=== PATIENT | female | born 1955 | race American Indian/Alaskan Native ===

== ENCOUNTER 2017-01-28 12:45 | Outpatient (CLI) | payer BC ==
--- NOTE | 2017-01-28 13:40 | Mammography Report ---
Screening mammogram: Routine views are compared to our prior study in 2015 as well as an outside exam and 2013. There is an intermediate residual fibroglandular tissue in a generally symmetric distribution. There is a focal asymmetry in the right inferior breast. Minimal architectural changes are noted anteriorly on the left consistent with prior surgery. These findings are all unchanged from prior exam. CAD used. Impression: Stable breast pattern. Recommendation: Annual mammogram followup. BI-RADS CATEGORY: 1 = Negative ACR BI-RADS MAMMOGRAPHIC CODES: 0 = Needs additional imaging evaluation; 1 = Negative; 2 = Benign; 3 = Probably benign; 4 = Suspicious; 5 = Malignant; 6 = Known biopsy-proven malignancy COMMENT: 1. Dense breast tissue, i.e., adenosis, fibrocystic changes, etc., may obscure an underlying neoplasm. 2. Approximately 10% of cancers are not detected with mammography. 3. A negative mammography report should not delay biopsy if a clinically suspicious mass is present.
== END 2017-01-28 12:46 | disposition home or self-care (01) ==
LOC: MAMMO 12:45
PROVIDERS: ATTEND Family Medicine Adult Medicine
DX: Z12.31 Encounter for screening mammogram for malignant neoplasm of breast (principal)
CPT/HCPCS: 77067; G0202

== ENCOUNTER 2018-02-01 07:34 | Outpatient (CLI) | payer BC ==
--- NOTE | 2018-02-01 09:36 | Mammography Report ---
Bilateral mammogram: Compared to 01/28/17 and 04/18/15. CAD study utilized. Findings: Predominantly adipose tissue bilaterally. Benign density upper outer right breast without interval change. 3 mm circumscribed density in the posterior and upper and lower left breast seen on MLO view. 3 mm circumscribed new density in the posterior left breast. Impression: Near circumscribed densities left breast. Recommend spot mag and if necessary sonographic examination. BI-RADS CATEGORY: 0 = Needs additional imaging evaluation ACR BI-RADS MAMMOGRAPHIC CODES: 0 = Needs additional imaging evaluation; 1 = Negative; 2 = Benign; 3 = Probably benign; 4 = Suspicious; 5 = Malignant; 6 = Known biopsy-proven malignancy COMMENT: 1. Dense breast tissue, i.e., adenosis, fibrocystic changes, etc., may obscure an underlying neoplasm. 2. Approximately 10% of cancers are not detected with mammography. 3. A negative mammography report should not delay biopsy if a clinically suspicious mass is present. COMMENT: Patient follow-up letters are generated in [employer].
--- NOTE | 2018-02-01 10:51 | Ultrasound Report ---
Pelvic and transvaginal sonography: History: Pelvic pain. Findings: Uterus measures 5.2 x 1.8 x 2.7 cm. Anteverted uterus. Endometrial thickness 4.3 mm. Fluid noted in the endometrium. There is no distinct mass identified in the myometrium however a few echogenic scattered foci are identified which may represent calcification among other causes. Incidentally noted dilated distal right ureter adjacent to the bladder. Impression: Fluid in endometrium. Suspected dilated right ureter near the bladder.
== END 2018-02-01 07:35 | disposition home or self-care (01) ==
LOC: MAMMO 07:34
PROVIDERS: ATTEND Family Medicine Adult Medicine
DX: Z12.31 Encounter for screening mammogram for malignant neoplasm of breast (principal); R10.2 Pelvic and perineal pain
CPT/HCPCS: 76830; 76856; 77067

== ENCOUNTER 2018-03-14 08:23 | Outpatient (CLI) | payer BC ==
--- NOTE | 2018-03-14 09:32 | Mammography Report ---
LEFT DIGITAL DIAGNOSTIC MAMMOGRAM : 03/14/18 08:23:00 CLINICAL: Recall to evaluate asymmetries. COMPARISON:02/01/18 screening and additional mammograms going back to 07/19/13 FINDINGS: ML and spot compression MLO and CC views were performed. An oval 7 mm density along the pectoral muscle is probably a lymph node and has not changed compared to prior exams. A low density circumscribed lower inner nodule is also not significantly changed compared to prior exams. IMPRESSION: A benign upper posterior intramammary lymph node and a benign lower inner nodule. BI-RADS CATEGORY: 2 - - Benign RECOMMENDATION: Routine mammographic screening in one year. ACR BI-RADS MAMMOGRAPHIC CODES: 0 = Needs additional imaging evaluation; 1 = Negative; 2 = Benign; 3 = Probably benign; 4 = Suspicious; 5 = Malignant; 6 = Known biopsy-proven malignancy COMMENT: 1. Dense breast tissue, i.e., adenosis, fibrocystic changes, etc., may obscure an underlying neoplasm. 2. Approximately 10% of cancers are not detected with mammography. 3. A negative mammography report should not delay biopsy if a clinically suspicious mass is present. COMMENT: Patient follow-up letters are generated via our [employer] application.
== END 2018-03-14 08:24 | disposition home or self-care (01) ==
LOC: MAMMO 08:23
PROVIDERS: ATTEND Family Medicine Adult Medicine
DX: R92.8 Other abnormal and inconclusive findings on diagnostic imaging of breast (principal)

== ENCOUNTER 2019-03-16 07:07 | Outpatient (CLI) | payer BC ==
--- NOTE | 2019-03-16 08:56 | Mammography Report ---
Screening mammogram: Routine views compared to her prior examination in January 2017. There is a focal asymmetry in the inferior right breast. Small circumscribed nodule is noted in the lateral right breast as well as near the axilla in the left breast. Mild architectural changes are noted on the left from history prior surgery. The remainder the breast pattern is generally fatty replaced and unremarkable. There are no interval changes compared to her prior exam. CAD used. Impression: Stable exam. No suspicious findings. Recommendation: Annual mammogram followup. BI-RADS CATEGORY: 2 = Benign ACR BI-RADS MAMMOGRAPHIC CODES: 0 = Needs additional imaging evaluation; 1 = Negative; 2 = Benign; 3 = Probably benign; 4 = Suspicious; 5 = Malignant; 6 = Known biopsy-proven malignancy COMMENT: 1. Dense breast tissue, i.e., adenosis, fibrocystic changes, etc., may obscure an underlying neoplasm. 2. Approximately 10% of cancers are not detected with mammography. 3. A negative mammography report should not delay biopsy if a clinically suspicious mass is present.
== END 2019-03-16 07:08 | disposition home or self-care (01) ==
LOC: MAMMO 07:07
PROVIDERS: ATTEND Family Medicine Adult Medicine
DX: Z12.31 Encounter for screening mammogram for malignant neoplasm of breast (principal)
CPT/HCPCS: 77067

== ENCOUNTER 2019-07-03 16:53 | Observation (INO) | payer BC ==
--- NOTE | 2019-07-03 17:27 | Event Note ---
ED Screening Note Date of service: 07/03/19 Time: 17:26 ED Screening Note: 64 y o female presents with substernal chest pain radiating to back and left shoulder x 2 days This initial assessment/diagnostic orders/clinical plan/treatment(s) is/are subject to change based on patients health status, clinical progression and re- assessment by fellow clinical providers in the ED. Further treatment and workup at subsequent clinical providers discretion. Patient/guardian urged not to elope from the ED as their condition may be serious if not clinically assessed and managed. Initial orders include: ekg labs
--- NOTE | 2019-07-03 18:09 | XRay Report ---
CHEST 1 VIEW INDICATION: Chest Pain. COMPARISON: none FINDINGS: SUPPORT DEVICES: None. HEART / MEDIASTINUM: No significant abnormality. LUNGS / PLEURA: No significant pulmonary or pleural abnormality. No pneumothorax. ADDITIONAL FINDINGS: IMPRESSION: 1. No acute findings. Signer Name: Germain Estrella MD Signed: 07/03/2019 6:05 PM Workstation Name: [id number]
[2019-07-03 18:20] LABS: Basophils % (Auto) 0.5 % (0.0-1.8); Eosinophils # (Auto) 0.1 K/mm3 (0.0-0.4); Eosinophils % (Auto) 0.8 % (0.0-4.3); Hematocrit 35.3 % (30.3-42.9); Hemoglobin 11.8 gm/dl (10.1-14.3); Lymphocytes # (Auto) 2.7 K/mm3 (1.2-5.4); Lymphocytes % (Auto) 35.6 % (13.4-35.0); Mean Corpuscular HGB Conc 33 % (30-34); Mean Corpuscular Volume 85 fl (79-97); Monocytes # (Auto) 0.4 K/mm3 (0.0-0.8); Monocytes % (Auto) 5.8 % (0.0-7.3); Platelet Count 308 K/mm3 (140-440); Red Blood Count 4.18 M/mm3 (3.65-5.03); Red Cell Distribution Width 15.9 % (13.2-15.2)
[2019-07-03 18:42] LABS: BUN/Creatinine Ratio 10; Blood Urea Nitrogen 7 mg/dL (7-17); Calcium 9.3 mg/dL (8.4-10.2); Hemolysis Index 12
--- NOTE | 2019-07-03 20:27 | Emergency Department Report ---
ED General Adult HPI - General Chief complaint: Chest Pain Stated complaint: CHEST PAIN/SOB Time Seen by Provider: 07/03/19 17:25 Source: patient Mode of arrival: Ambulatory Limitations: No Limitations - History of Present Illness Initial comments: The patient presents to the emergency department with a chief complaint of substernal chest pain that started at 11 AM while at work. Patient describes the chest pain is pressure-like in nature with radiation into her left forearm and into her back between her shoulder blades. Patient has a history of h ypertension, diabetes, hyperlipidemia. She also complains of nausea with one episode of vomiting -: Sudden Location: chest Radiation: back Severity scale (0 -10): 3 Quality: other (pressure) Consistency: constant Improves with: none Worsens with: none Associated Symptoms: denies other symptoms Treatments Prior to Arrival: none - Related Data Allergies Allergy/AdvReac Type Severity Reaction Status Date / Time Sulfa (Sulfonamide Allergy Itching Verified 07/03/19 17:23 Antibiotics) ED Review of Systems ROS: Stated complaint: CHEST PAIN/SOB Other details as noted in HPI Comment: All other systems reviewed and negative Constitutional: denies: chills, fever Eyes: denies: eye pain, eye discharge, vision change ENT: denies: ear pain, throat pain Respiratory: denies: cough, shortness of breath, wheezing Cardiovascular: chest pain. denies: palpitations Endocrine: no symptoms reported Gastrointestinal: denies: abdominal pain, nausea, diarrhea Genitourinary: denies: urgency, dysuria, discharge Musculoskeletal: denies: back pain, joint swelling, arthralgia Skin: denies: rash, lesions Neurological: denies: headache, weakness, paresthesias Psychiatric: denies: anxiety, depression Hematological/Lymphatic: denies: easy bleeding, easy bruising ED Past Medical Hx - Past Medical History Previous Medical History?: Yes Hx Hypertension: Yes Hx Diabetes: Yes Hx GERD: Yes Hx Psychiatric Treatment: Yes (Depression) Additional medical history: Hypothyroidism - Surgical History Past Surgical History?: Yes Additional Surgical History: , partial thyriodectomy - Social History Smoking Status: Never Smoker Substance Use Type: None ED Physical Exam - General Limitations: No Limitations General appearance: alert, in no apparent distress - Head Head exam: Present: atraumatic, normocephalic - Eye Eye exam: Present: normal appearance, PERRL, EOMI - ENT ENT exam: Present: mucous membranes moist - Neck Neck exam: Present: normal inspection - Respiratory Respiratory exam: Present: normal lung sounds bilaterally. Absent: respiratory distress - Cardiovascular Cardiovascular Exam: Present: regular rate, normal rhythm. Absent: systolic murmur, diastolic murmur, rubs, gallop - GI/Abdominal GI/Abdominal exam: Present: soft, normal bowel sounds. Absent: distended, tenderness - Extremities Exam Extremities exam: Present: normal inspection - Back Exam Back exam: Present: normal inspection - Neurological Exam Neurological exam: Present: alert, oriented X3, CN II-XII intact. Absent: motor sensory deficit - Psychiatric Psychiatric exam: Present: normal affect, normal mood - Skin Skin exam: Present: warm, dry, intact, normal color. Absent: rash ED Course Vital Signs 07/03/19 07/03/19 07/03/19 17:24 18:11 18:15 Temperature 98.2 F Pulse Rate 71 67 Respiratory 18 16 16 Rate Blood Pressure 151/84 133/71 [Right] O2 Sat by Pulse 98 99 99 Oximetry 07/03/19 07/03/19 19:55 20:45 Temperature 98.4 F Pulse Rate 69 60 Respiratory 18 12 Rate Blood Pressure 120/67 125/64 [Right] O2 Sat by Pulse 98 97 Oximetry ED Medical Decision Making - Lab Data Result diagrams: 07/03/19 17:57 07/03/19 17:57 Lab Results 07/03/19 07/03/19 07/03/19 Range/Units 17:57 17:57 22:56 WBC 7.6 (4.5-11.0) K/mm3 RBC 4.18 (3.65-5.03) M/mm3 Hgb 11.8 (10.1-14.3) gm/dl Hct 35.3 (30.3-42.9) % MCV 85 (79-97) fl MCH 28 (28-32) pg MCHC 33 (30-34) % RDW 15.9 H (13.2-15.2) % Plt Count 308 (140-440) K/mm3 Lymph % (Auto) 35.6 H (13.4-35.0) % Lipscomb % (Auto) 5.8 (0.0-7.3) % Eos % (Auto) 0.8 (0.0-4.3) % Baso % (Auto) 0.5 (0.0-1.8) % Lymph # 2.7 (1.2-5.4) K/mm3 Lipscomb # 0.4 (0.0-0.8) K/mm3 Eos # 0.1 (0.0-0.4) K/mm3 Baso # 0.0 (0.0-0.1) K/mm3 Seg Neutrophils % 57.3 (40.0-70.0) % Seg Neutrophils # 4.3 (1.8-7.7) K/mm3 Sodium 141 (137-145) mmol/L Potassium 4.1 (3.6-5.0) mmol/L Chloride 102.8 (98-107) mmol/L Carbon Dioxide 27 (22-30) mmol/L Anion Gap 15 mmol/L BUN 7 (7-17) mg/dL Creatinine 0.7 (0.7-1.2) mg/dL Estimated GFR > 60 ml/min BUN/Creatinine Ratio 10 % Glucose 101 H (65-100) mg/dL Calcium 9.3 (8.4-10.2) mg/dL Troponin T < 0.010 < 0.010 (0.00-0.029) ng/mL - EKG Data -: EKG Interpreted by Me EKG shows normal: sinus rhythm Rate: normal - Radiology Data Radiology results: report reviewed - Medical Decision Making results discussed with patient Critical care attestation.: If time is entered above; I have spent that time in minutes in the direct care of this critically ill patient, excluding procedure time. ED Disposition Clinical Impression: Chest pain Disposition: OP ADMIT IP TO THIS HOSP Is pt being admited?: No Does the pt Need Aspirin: No Condition: Stable Instructions: Chest Pain (ED) Referrals: PRIMARY CARE, [Primary Care Provider] - 3-5 Days
--- NOTE | 2019-07-03 22:53 | Cat Scan Report ---
CTA CHEST, ABDOMEN, AND PELVIS WITHOUT AND WITH CONTRAST INDICATION / CLINICAL INFORMATION: chest pain radiating into back. TECHNIQUE: Axial CT images were obtained through the chest, abdomen, and pelvis before and after injection of 10 0 mL Omnipaque 300 IV contrast. 3 plane MIP and/or 3D reconstructions were produced. All CT scans at this location are performed using CT dose reduction for ALARA by means of automated exposure control. COMPARISON: None available. FINDINGS: Heart: Nonenlarged. Small amount of coronary artery calcification. Thoracic Aorta: No significant abnormality. Specifically, there is no evidence of aortic aneurysm or dissection. Great Vessels: No significant abnormality. Pulmonary Arteries: No significant abnormality. No pulmonary thromboembolus is identified. The main p ulmonary artery is nondilated. Additional Chest Findings: Calcified granuloma in the left upper lobe. The lungs are clear without fo michelle pulmonary consolidation. No pleural effusion. No pneumothorax. Abdominal Aorta: Minimal atherosclerotic calcification. There is no evidence of abdominal aortic aneu rysm or dissection. Renal arteries: No significant abnormality. Celiac artery: No significant abnormality. Superior Mesenteric Artery: No significant abnormality. Inferior mesenteric artery: No significant abnormality. Right Iliac Arteries: No significant abnormality.. Left Iliac Arteries: No significant abnormality.. Additional Abdominopelvic Findings: Small hiatal hernia. There is a 1.1 cm lesion in the left kidney with areas of fat attenuation most compatible with a small angiomyolipoma. The liver, gallbladder, sp josé miguel, pancreas, adrenal glands, and right kidney are unremarkable. There is no evidence of bowel obst ruction or significant perienteric inflammation. Skeletal Structures: No significant abnormality. IMPRESSION: 1. No acute process identified to account for patient's chest pain. Specifically, there is no evidenc e of aortic aneurysm or dissection, and no evidence of pulmonary thromboembolism. Signer Name: Sarah Mobley MD Signed: 07/03/2019 10:48 PM Workstation Name: [id number]
--- NOTE | 2019-07-03 23:24 | Cat Scan Report ---
CT angio abdomen INDICATION / CLINICAL INFORMATION: chest pain radiating into the patient's back. TECHNIQUE: Axial CT images were obtained after injection of 100 mL IV contrast using CTA protocol. 3 plane MIP / 3D reconstructions were produced. All CT scans at this location are performed using CT dose reductio n for ALARA by means of automated exposure control. COMPARISON: None available. FINDINGS: CTA of the abdomen: The abdominal aorta is normal in size without aneurysm or dissection. No occlusio n or stenosis present. Scattered atherosclerotic calcification present throughout much of the upper a bdominal aorta. The DAYAMI is patent. The SMA and celiac arteries are widely patent. Both renal arteries are unremarkable. The liver, gallbladder, spleen pancreas adrenal glands are unremarkable. IMPRESSION: 1. No evidence of aortic aneurysm or dissection. No acute findings Signer Name: Asher Martinez MD Signed: 07/03/2019 11:20 PM Workstation Name: [id number]
--- NOTE | 2019-07-04 00:06 | Event Note ---
64-year-old woman who presents to the hospital with chest pain. She is been having chest pain for over a year. States that she has chest pain on exertion. Has been getting more frequent and more severe. States that usually the pain lasts about 5 minutes. It takes her breath away makes her feel like her heart is racing. She gets chest pain on walking and on going up the stairs. And it subsides with resting. She describes the pain as sharp stabbing in the mid chest radiating to the left neck left arm and left upper back. Sometimes he has a squeezing/pressure sensation. She admits that she has a history of anxiety disorder and takes Xanax on and off, but that may be with anxiety causing it. She bought a pulse ox at home, noted that when she has chest pain her heart rate goes up as high as 118, and it is usually in the 80s at rest. She has been concerned about dyspnea on exertion. Denies pedal edema, denies orthopnea. Today the chest pain happened after she had walked, and it kept recurring and she noted that she was nauseous and threw up him to come to the hospital. Patient states that she has not had a stress test in at least 2 years. 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
[2019-07-04] MEDS ORDERED: ACETAMINOPHEN 325 MG TAB PO PRN (00:12)
[2019-07-04] MEDS ORDERED: ONDANSETRON 4 MG/2 ML INJ IV PRN (00:12)
[2019-07-04] MEDS ORDERED: MORPHINE 2 MG/1 ML INJ IV PRN (00:12)
[2019-07-04] MEDS ORDERED: hydrALAZINE 20 MG/1 ML INJ IV PRN ×2 (00:14→00:31)
[2019-07-04] MEDS ORDERED: ASPIRIN 325 MG TAB PO ONE (01:00)
[2019-07-04] MEDS ORDERED: DEXTROSE 50% IN WATER (25GM) 50 ML SYRINGE IV PRN (01:08)
[2019-07-04 01:09] LABS: Chol/HDL Ratio 1.96 %
--- NOTE | 2019-07-04 01:20 | History and Physical Report ---
History of Present Illness Date of examination: 07/04/19 Date of admission: 07/04/2019 Chief complaint: Chest Pain History of present illness: 64-year-old -[place] female with history of hypertension, diabetes, GERD, hypothyroidism, depression, anxiety who presents to [facility] ED with complaints of chest pain. 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 She immediately sat down and started taking deep breaths, which improved her chest pain to 5/10. She denies nausea and diaphoresis. Additionally patient states that she's been having palpitations for approximately 1 month. Her palpitations have gradually wor sened over the past 2 weeks with this past Tuesday being its worst. She decided to call her calibration tester (Dr. Pan with [facility]) on Tuesday morning and scheduled an appointment for July 24. She states that she has had cardiac workup which included echocardiogram and LHC about 15 years ago. Patient states that she is compliant with meds. Denies: Nausea, vomiting, diarrhea, diaphoresis, fever, or headache Past History Past Medical History: diabetes, GERD, hypertension, hypothyroidism, other (depression, anxiety) Past Surgical History: , Other (partial thyroidectomy) Social history: Lives alone Family history: no significant family history Medications and Allergies Allergies Allergy/AdvReac Type Severity Reaction Status Date / Time Sulfa (Sulfonamide Allergy Itching Verified 07/03/19 17:23 Antibiotics) Home Medications Medication Instructions Recorded Confirmed Last Taken Type Aspirin [Aspirin BABY CHEW TAB] 81 mg PO QDAY 07/04/19 07/04/19 Unknown History AtorvaSTATin [Lipitor] 10 mg PO QHS 07/04/19 07/04/19 Unknown History DULoxetine [Cymbalta] 30 mg PO QDAY 07/04/19 07/04/19 Unknown History Levothyroxine [Synthroid] 75 mcg PO QAM 07/04/19 07/04/19 Unknown History Lisinopril [Zestril TAB] 40 mg PO QDAY 07/04/19 07/04/19 Unknown History Metformin HCl [metFORMIN] 1,000 mg PO BID 07/04/19 07/04/19 Unknown History Pantoprazole [Protonix] 40 mg PO BID 07/04/19 07/04/19 Unknown History Potassium Chloride [K-Dur] 10 meq PO QDAY 07/04/19 07/04/19 Unknown History Sucralfate [Carafate] 1 gm PO ACHS 07/04/19 07/04/19 Unknown History amLODIPine [Norvasc] 10 mg PO DAILY 07/04/19 07/04/19 Unknown History Active Meds: Active Medications Acetaminophen (Tylenol) 650 mg PO Q4H PRN PRN Reason: Pain MILD(1-3)/Fever >100.5/SARAVIA Amlodipine Besylate (Norvasc) 10 mg PO DAILY [facility] Aspirin (Baby Aspirin) 81 mg PO QDAY [facility] Dextrose (D50w (25gm) Syringe) 50 ml IV PRN PRN PRN Reason: Hypoglycemia Duloxetine HCl (Cymbalta) 30 mg PO QDAY MARGARET Enoxaparin Sodium (Lovenox) 40 mg SUB-Q QDAY [facility] Hydralazine HCl (Apresoline) 10 mg IV Q4H PRN PRN Reason: BP >160/100 Insulin Human Lispro (Humalog) 0 unit SUB-Q Q6HR [facility]; Protocol Levothyroxine Sodium (Synthroid) 75 mcg PO QAM [facility] Lisinopril (Zestril) 40 mg PO QDAY [facility] Miscellaneous Medication (Metformin Hcl [Metformin]) 1,000 mg PO BID [facility] Morphine Sulfate (Morphine) 2 mg IV Q4H PRN PRN Reason: Pain, Moderate (4-6) Nitroglycerin (Nitro-Bid 2%) 0.5 inch TP TIDNTG [facility]; Protocol Ondansetron HCl (Zofran) 4 mg IV Q8H PRN PRN Reason: Nausea And Vomiting Pantoprazole Sodium (Protonix) 40 mg PO BID [facility] Sodium Chloride (Sodium Chloride Flush Syringe 10 Ml) 10 ml IV PRN PRN PRN Reason: LINE FLUSH Sodium Chloride (Sodium Chloride Flush Syringe 10 Ml) 10 ml IV BID [facility] Review of Systems All systems: negative Cardiovascular: chest pain, palpitations, dyspnea on exertion Exam - Physical Exam Narrative exam: Physical exam General appearance: Present: No acute distress, alert and oriented 3, pleasant, adult -[place] male - EENT Eyes: Present: PERRL, EOM intact, ENT: hearing intact, normal dentition - Neck Neck: Present: supple, normal ROM - Respiratory Respiratory effort: Non-labored Respiratory: CTA - Cardiovascular Heart rate: 65 (bpm) Rhythm: SR Heart Sounds: Present: S1, S2 - Extremities Extremities: no ischemia, pulses intact, - Peripheral Assessment Peripheral Pulses: within normal limits - Abdominal General gastrointestinal: soft, non-tender, normal bowel sounds - Integumentary Integumentary: Present: warm, dry, - Musculoskeletal Musculoskeletal: Able to move all extremities, normal gait -Neurological Neurological: CN II-XII grossly intact - Psychiatric Psychiatric: cooperative - Constitutional Vitals: Temp Pulse Resp BP Pulse Ox 98.4 F 62 13 127/68 98 07/03/19 19:55 07/04/19 00:25 07/04/19 00:25 07/04/19 00:00 07/04/19 00:25 Results - Labs CBC & Chem 7: 07/03/19 17:57 07/03/19 17:57 Labs: Laboratory Last Values WBC 7.6 K/mm3 (4.5-11.0) 07/03/19 17:57 RBC 4.18 M/mm3 (3.65-5.03) 07/03/19 17:57 Hgb 11.8 gm/dl (10.1-14.3) 07/03/19 17:57 Hct 35.3 % (30.3-42.9) 07/03/19 17:57 MCV 85 fl (79-97) 07/03/19 17:57 MCH 28 pg (28-32) 07/03/19 17:57 MCHC 33 % (30-34) 07/03/19 17:57 RDW 15.9 % (13.2-15.2) H 07/03/19 17:57 Plt Count 308 K/mm3 (140-440) 07/03/19 17:57 Lymph % (Auto) 35.6 % (13.4-35.0) H 07/03/19 17:57 [place] % (Auto) 5.8 % (0.0-7.3) 07/03/19 17:57 Eos % (Auto) 0.8 % (0.0-4.3) 07/03/19 17:57 Baso % (Auto) 0.5 % (0.0-1.8) 07/03/19 17:57 Lymph # 2.7 K/mm3 (1.2-5.4) 07/03/19 17:57 [place] # 0.4 K/mm3 (0.0-0.8) 07/03/19 17:57 Eos # 0.1 K/mm3 (0.0-0.4) 07/03/19 17:57 Baso # 0.0 K/mm3 (0.0-0.1) 07/03/19 17:57 Seg Neutrophils % 57.3 % (40.0-70.0) 07/03/19 17:57 Seg Neutrophils # 4.3 K/mm3 (1.8-7.7) 07/03/19 17:57 Sodium 141 mmol/L (137-145) 07/03/19 17:57 Potassium 4.1 mmol/L (3.6-5.0) 07/03/19 17:57 Chloride 102.8 mmol/L (98-107) 07/03/19 17:57 Carbon Dioxide 27 mmol/L (22-30) 07/03/19 17:57 Anion Gap 15 mmol/L 07/03/19 17:57 BUN 7 mg/dL (7-17) 07/03/19 17:57 Creatinine 0.7 mg/dL (0.7-1.2) 07/03/19 17:57 Estimated GFR > 60 ml/min 07/03/19 17:57 BUN/Creatinine Ratio 10 % 07/03/19 17:57 Glucose 101 mg/dL (65-100) H 07/03/19 17:57 Calcium 9.3 mg/dL (8.4-10.2) 07/03/19 17:57 Troponin T < 0.010 ng/mL (0.00-0.029) 07/03/19 22:56 Triglycerides 76 mg/dL (2-149) 07/04/19 00:20 Cholesterol 130 mg/dL (50-199) 07/04/19 00:20 LDL Cholesterol Direct 56 mg/dL (50-130) 07/04/19 00:20 HDL Cholesterol 66 mg/dL (40-59) H 07/04/19 00:20 Cholesterol/HDL Ratio 1.96 % 07/04/19 00:20 - Imaging and Cardiology Imaging and Cardiology: CXR: FINDINGS: SUPPORT DEVICES: None. HEART / MEDIASTINUM: No significant abnormality. LUNGS / PLEURA: No significant pulmonary or pleural abnormality. No pneumothorax. ADDITIONAL FINDINGS: IMPRESSION: 1. No acute findings. CT angio Chest: FINDINGS: Heart: Nonenlarged. Small amount of coronary artery calcification. Thoracic Aorta: No significant abnormality. Specifically, there is no evidence of aortic aneurysm or dissection. Great Vessels: No significant abnormality. Pulmonary Arteries: No significant abnormality. No pulmonary thromboembolus is identified. The main pulmonary artery is nondilated. Additional Chest Findings: Calcified granuloma in the left upper lobe. The lungs are clear without focal pulmonary consolidation. No pleural effusion. No pneumothorax. Abdominal Aorta: Minimal atherosclerotic calcification. There is no evidence of abdominal aortic aneurysm or dissection. Renal arteries: No significant abnormality. Celiac artery: No significant abnormality. Superior Mesenteric Artery: No significant abnormality. Inferior mesenteric artery: No significant abnormality. Right Iliac Arteries: No significant abnormality.. Left Iliac Arteries: No significant abnormality.. Additional Abdominopelvic Findings: Small hiatal hernia. There is a 1.1 cm lesion in the left kidney with areas of fat attenuation most compatible with a small angiomyolipoma. The liver, gallbladder, spleen, pancreas, adrenal glands, and right kidney are unremarkable. There is no evidence of bowel obstruction or significant perienteric inflammation. Skeletal Structures: No significant abnormality. IMPRESSION: 1. No acute process identified to account for patient's chest pain. Spec ifically, there is no evidence of aortic aneurysm or dissection, and no evidence of pulmonary thromb oembolism. CT angio Abdomen: FINDINGS: CTA of the abdomen: The abdominal aorta is normal in size without aneurysm or dissection. No occlusion or stenosis present. Scattered atherosclerotic calcification present throughout much of the upper abdominal aorta. The DAYAMI is patent. The SMA and celiac arteries are widely patent. Both renal arteries are unremarkable. The liver, gallbladder, spleen pancreas adrenal glands are unremarkable. IMPRESSION: 1. No evidence of aortic aneurysm or dissection. No acute findings Assessment and Plan Assessment and plan: 64-year-old -[place] female with history of hypertension, diabetes, GERD, hypothyroidism, depression, anxiety who presents to [facility] with complaints of chest pain. Acute Chest Pain -CT angiogram chest negative -CT angiogram abdomen negative -CXR unremarkable -Initiate chest pain protocol -Continuous telemetry monitoring -Continue supportive care -Pain mgmt -Troponin negative x 2, will continue to trend -On ASA and Statin -Lipid panel pending -Cardiology consulted HTN -Monitor BP -Resume home antihypertensive meds -IV hydralazine when necessary DM2 -POC BG monitoring -Resume metformin -SSI coverage prn -HgbA1c pending GERD -On PPI Hypothyroidism -Continue Synthroid Depression -Continue Cymbalta DVT PPX -on Lovenox Advance Directives: No VTE prophylaxis?: Chemical Plan of care discussed with patient/family: Yes
[2019-07-04] MEDS ORDERED: SODIUM CHLORIDE 0.9% 1000 ML 1,000 ML ONE (06:41)
[2019-07-04] MEDS ORDERED: metFORMIN 500 MG TAB PO SCH (08:00)
[2019-07-04] MEDS: NITROGLYCERIN 2% OINT 1 GM TP SCH ×3 (08:05→18:06)
[2019-07-04] MEDS: INSULIN LISPRO 100 UNIT/ML SUB-Q SCH ×3 (08:05→18:05)
[2019-07-04] MEDS: LEVOTHYROXINE 75 MCG TAB PO SCH (08:05)
[2019-07-04] MEDS ORDERED: REGADENOSON 0.4 MG/5 ML INJ IV ONE ×2 (08:33→08:51)
[2019-07-04] MEDS ORDERED: amLODIPine 10 MG TAB PO SCH (10:00)
[2019-07-04] MEDS ORDERED: FLU VACC QUAD 2019-20 (3 YR UP)/PF 60 MCG/0.5 ML SYRINGE IM ONE (12:00)
[2019-07-04] MEDS: DULoxetine 30 MG CAP PO SCH (13:08)
[2019-07-04] MEDS: ASPIRIN 81 MG TAB CHEW PO SCH (13:09)
[2019-07-04] MEDS: PANTOPRAZOLE 40 MG TAB PO SCH ×2 (13:09→21:33)
[2019-07-04] MEDS: LISINOPRIL 40 MG TAB PO SCH (13:09)
[2019-07-04] MEDS: ENOXAPARIN 40 MG/0.4 ML INJ SUB-Q SCH (15:49)
--- NOTE | 2019-07-04 16:24 | Progress Note ---
Assessment and Plan Assessment and plan: --Chest pain; Stress test abnormal, positive for ischemia Cardiology recommended left heart catheterization tomorrow Continue current cardiac medications Cardiology following --Hypertension; moderate control Continue current antihypertensives and when necessary medications --Type 2 diabetes mellitus; Accu-Chek sliding scale coverage and ADA diet and insulin as needed --GERD; Protonix --History of hypothyroidism; Synthroid --History of depression; continue Cymbalta --DVT prophylaxis; Lovenox Closely monitor and adjust the management as needed Plan of care is reviewed for the patient and her nurse History Interval history: Patient seen and examined medical records reviewed Admitted with chest pain and underwent stress test which was abnormal Cardiology recommended left heart catheterization tomorrow Patient feels slightly better mild intermittent chest pain Alert awake oriented 3 Vital signs noted Hospitalist Physical - Constitutional Vitals: Temp Pulse Resp BP Pulse Ox 98.6 F 79 18 118/87 99 07/04/19 12:23 07/04/19 12:23 07/04/19 12:23 07/04/19 12:23 07/04/19 12:23 General appearance: Present: no acute distress, well-nourished - EENT Eyes: Present: PERRL, EOM intact - Neck Neck: Present: supple, normal ROM - Respiratory Respiratory effort: normal Respiratory: bilateral: diminished, negative: rales, rhonchi, wheezing - Cardiovascular Rhythm: regular Heart Sounds: Present: S1 & S2 - Extremities Extremities: no ischemia, No edema - Abdominal General gastrointestinal: soft, non-tender, non-distended, normal bowel sounds - Integumentary Integumentary: Present: clear, warm - Psychiatric Psychiatric: appropriate mood/affect, cooperative - Neurologic Neurologic: CNII-XII intact, moves all extremities Results - Labs CBC & Chem 7: 07/03/19 17:57 07/03/19 17:57 Labs: Laboratory Last Values WBC 7.6 K/mm3 (4.5-11.0) 07/03/19 17:57 RBC 4.18 M/mm3 (3.65-5.03) 07/03/19 17:57 Hgb 11.8 gm/dl (10.1-14.3) 07/03/19 17:57 Hct 35.3 % (30.3-42.9) 07/03/19 17:57 MCV 85 fl (79-97) 07/03/19 17:57 MCH 28 pg (28-32) 07/03/19 17:57 MCHC 33 % (30-34) 07/03/19 17:57 RDW 15.9 % (13.2-15.2) H 07/03/19 17:57 Plt Count 308 K/mm3 (140-440) 07/03/19 17:57 Lymph % (Auto) 35.6 % (13.4-35.0) H 07/03/19 17:57 [place] % (Auto) 5.8 % (0.0-7.3) 07/03/19 17:57 Eos % (Auto) 0.8 % (0.0-4.3) 07/03/19 17:57 Baso % (Auto) 0.5 % (0.0-1.8) 07/03/19 17:57 Lymph # 2.7 K/mm3 (1.2-5.4) 07/03/19 17:57 [place] # 0.4 K/mm3 (0.0-0.8) 07/03/19 17:57 Eos # 0.1 K/mm3 (0.0-0.4) 07/03/19 17:57 Baso # 0.0 K/mm3 (0.0-0.1) 07/03/19 17:57 Seg Neutrophils % 57.3 % (40.0-70.0) 07/03/19 17:57 Seg Neutrophils # 4.3 K/mm3 (1.8-7.7) 07/03/19 17:57 Sodium 141 mmol/L (137-145) 07/03/19 17:57 Potassium 4.1 mmol/L (3.6-5.0) 07/03/19 17:57 Chloride 102.8 mmol/L (98-107) 07/03/19 17:57 Carbon Dioxide 27 mmol/L (22-30) 07/03/19 17:57 Anion Gap 15 mmol/L 07/03/19 17:57 BUN 7 mg/dL (7-17) 07/03/19 17:57 Creatinine 0.7 mg/dL (0.7-1.2) 07/03/19 17:57 Estimated GFR > 60 ml/min 07/03/19 17:57 BUN/Creatinine Ratio 10 % 07/03/19 17:57 Glucose 101 mg/dL (65-100) H 07/03/19 17:57 Hemoglobin A1c 6.4 % (4-6) H 07/04/19 04:17 Calcium 9.3 mg/dL (8.4-10.2) 07/03/19 17:57 Troponin T < 0.010 ng/mL (0.00-0.029) 07/04/19 04:17 Triglycerides 76 mg/dL (2-149) 07/04/19 00:20 Cholesterol 130 mg/dL (50-199) 07/04/19 00:20 LDL Cholesterol Direct 56 mg/dL (50-130) 07/04/19 00:20 HDL Cholesterol 66 mg/dL (40-59) H 07/04/19 00:20 Cholesterol/HDL Ratio 1.96 % 07/04/19 00:20 Active Medications - Current Medications Current Medications: Generic Name Dose Route Start Last Admin Trade Name Freq PRN Reason Stop Dose Admin Acetaminophen 650 mg 07/04/19 00:12 Tylenol PO Q4H PRN Pain MILD(1-3)/Fever >100.5/SARAVIA Amlodipine Besylate 10 mg 07/04/19 10:00 07/04/19 10:00 Norvasc PO Not Given DAILY [facility] Aspirin 81 mg 07/04/19 10:00 07/04/19 13:09 Baby Aspirin PO 81 mg QDAY MARGARET Administration Dextrose 50 ml 07/04/19 01:08 D50w (25gm) Syringe IV PRN PRN Hypoglycemia Duloxetine HCl 30 mg 07/04/19 10:00 07/04/19 13:08 Cymbalta PO 30 mg QDAY [facility] Administration Enoxaparin Sodium 40 mg 07/04/19 10:00 07/04/19 15:49 Lovenox SUB-Q Not Given QDAY [facility] Hydralazine HCl 10 mg 07/04/19 00:31 Apresoline IV Q4H PRN BP >160/100 Insulin Human Lispro 0 unit 07/04/19 06:00 07/04/19 12:00 Humalog SUB-Q Not Given Q6HR [facility] Protocol Levothyroxine Sodium 75 mcg 07/04/19 06:00 07/04/19 08:05 Synthroid PO Not Given QAM@0600 [facility] Lisinopril 40 mg 07/04/19 10:00 07/04/19 13:09 Zestril PO 40 mg QDAY MARGARET Administration Metformin HCl 1,000 mg 07/04/19 08:00 07/04/19 09:30 Glucophage PO Not Given BIDDIAB [facility] Morphine Sulfate 2 mg 07/04/19 00:12 Morphine IV Q4H PRN Pain, Moderate (4-6) Nitroglycerin 0.5 inch 07/04/19 06:00 07/04/19 15:51 Nitro-Bid 2% TP Not Given TIDNTG [facility] Protocol Ondansetron HCl 4 mg 07/04/19 00:12 Zofran IV Q8H PRN Nausea And Vomiting Pantoprazole Sodium 40 mg 07/04/19 10:00 07/04/19 13:09 Protonix PO 40 mg BID MARGARET Administration Sodium Chloride 10 ml 07/04/19 00:09 Sodium Chloride Flush Syringe 10 Ml IV PRN PRN LINE FLUSH Sodium Chloride 10 ml 07/04/19 10:00 07/04/19 13:10 Sodium Chloride Flush Syringe 10 Ml IV 10 ml BID MARGARET Administration
[2019-07-04] MEDS: METOPROLOL TARTRATE 25 MG TAB PO SCH (21:33)
[2019-07-05] MEDS: INSULIN LISPRO 100 UNIT/ML SUB-Q SCH ×3 (01:53→12:48)
[2019-07-05 05:24] LABS: Basophils % (Auto) 0.3 % (0.0-1.8); Eosinophils # (Auto) 0.1 K/mm3 (0.0-0.4); Eosinophils % (Auto) 1.5 % (0.0-4.3); Hemoglobin 11.4 gm/dl (10.1-14.3); Lymphocytes # (Auto) 1.8 K/mm3 (1.2-5.4); Lymphocytes % (Auto) 32.1 % (13.4-35.0); Mean Corpuscular HGB Conc 33 % (30-34); Mean Corpuscular Volume 84 fl (79-97); Monocytes # (Auto) 0.4 K/mm3 (0.0-0.8); Monocytes % (Auto) 7.3 % (0.0-7.3); Platelet Count 293 K/mm3 (140-440); Red Blood Count 4.04 M/mm3 (3.65-5.03); Red Cell Distribution Width 15.8 % (13.2-15.2)
[2019-07-05 05:45] LABS: BUN/Creatinine Ratio 13; Blood Urea Nitrogen 9 mg/dL (7-17); Calcium 8.8 mg/dL (8.4-10.2); Hemolysis Index 6
[2019-07-05 05:47] LABS: INR 0.96 (0.87-1.13)
[2019-07-05] MEDS: NITROGLYCERIN 2% OINT 1 GM TP SCH ×2 (06:31→12:48)
[2019-07-05] MEDS: LEVOTHYROXINE 75 MCG TAB PO SCH (06:32)
--- NOTE | 2019-07-05 09:20 | Consultation ---
<JASPAL QUEVEDO - Last Filed: 07/05/19 09:15> History of Present Illness Consult date: 07/04/19 Consult reason: chest pain History of present illness: This is a 64-year old woman who presented with complaints of chest pain and shortness of breath. Chest x-ray showed no acute findings and a chest CTA was negative for pulmonary embolism. Cycled troponin were normal and her ECG showed normal sinus rhythm. There is no history of coronary artery disease and she had no recent cardiac workup. Patient was admitted by the hospitalist and ordered to have a stress thallium test. Cardiology consultation has been requested. Past History Past Medical History: diabetes, GERD, hypertension, hypothyroidism, other (depression, anxiety) Past Surgical History: , Other (partial thyroidectomy) Social history: Lives alone Family history: no significant family history Medications and Allergies Allergies Allergy/AdvReac Type Severity Reaction Status Date / Time Sulfa (Sulfonamide Allergy Itching Verified 07/03/19 17:23 Antibiotics) Home Medications Medication Instructions Recorded Confirmed Last Taken Type Aspirin [Aspirin BABY CHEW TAB] 81 mg PO QDAY 07/04/19 07/04/19 Unknown History AtorvaSTATin [Lipitor] 10 mg PO QHS 07/04/19 07/04/19 Unknown History DULoxetine [Cymbalta] 30 mg PO QDAY 07/04/19 07/04/19 Unknown History Levothyroxine [Synthroid] 75 mcg PO QAM 07/04/19 07/04/19 Unknown History Linzess 72 mcg PO DAILY 07/04/19 07/04/19 07/03/19 10:00 History 72 mcg Lisinopril [Zestril TAB] 40 mg PO QDAY 07/04/19 07/04/19 Unknown History Metformin HCl [metFORMIN] 1,000 mg PO BID 07/04/19 07/04/19 Unknown History Pantoprazole [Protonix TAB] 40 mg PO BID 07/04/19 07/04/19 Unknown History Potassium Chloride [K-Dur] 10 meq PO QDAY 07/04/19 07/04/19 Unknown History Sucralfate [Carafate] 1 gm PO ACHS 07/04/19 07/04/19 Unknown History Metoprolol [Lopressor TAB] 12.5 mg PO BID #60 tablet 07/05/19 Unknown Rx Zolpidem [Ambien] 5 mg PO QHS PRN #7 tablet 07/05/19 Unknown Rx Active Meds: Active Medications Acetaminophen (Tylenol) 650 mg PO Q4H PRN PRN Reason: Pain MILD(1-3)/Fever >100.5/SARAVIA Aspirin (Baby Aspirin) 81 mg PO QDAY [facility] Last Admin: 07/04/19 13:09 Dose: 81 mg Documented by: Dextrose (D50w (25gm) Syringe) 50 ml IV PRN PRN PRN Reason: Hypoglycemia Duloxetine HCl (Cymbalta) 30 mg PO QDAY [facility] Last Admin: 07/04/19 13:08 Dose: 30 mg Documented by: Enoxaparin Sodium (Lovenox) 40 mg SUB-Q QDAY [facility] Last Admin: 07/04/19 15:49 Dose: Not Given Documented by: Hydralazine HCl (Apresoline) 10 mg IV Q4H PRN PRN Reason: BP >160/100 Insulin Human Lispro (Humalog) 0 unit SUB-Q Q6HR [facility]; Protocol Last Admin: 07/05/19 06:31 Dose: Not Given Documented by: Levothyroxine Sodium (Synthroid) 75 mcg PO QAM@0600 [facility] Last Admin: 07/05/19 06:32 Dose: Not Given Documented by: Lisinopril (Zestril) 40 mg PO QDAY [facility] Last Admin: 07/04/19 13:09 Dose: 40 mg Documented by: Metoprolol Tartrate (Lopressor) 12.5 mg PO BID [facility] Last Admin: 07/04/19 21:33 Dose: 12.5 mg Documented by: Morphine Sulfate (Morphine) 2 mg IV Q4H PRN PRN Reason: Pain, Moderate (4-6) Nitroglycerin (Nitro-Bid 2%) 0.5 inch TP TIDNTG [facility]; Protocol Last Admin: 07/05/19 06:31 Dose: Not Given Documented by: Ondansetron HCl (Zofran) 4 mg IV Q8H PRN PRN Reason: Nausea And Vomiting Pantoprazole Sodium (Protonix) 40 mg PO BID [facility] Last Admin: 07/04/19 21:33 Dose: 40 mg Documented by: Sodium Chloride (Sodium Chloride Flush Syringe 10 Ml) 10 ml IV PRN PRN PRN Reason: LINE FLUSH Sodium Chloride (Sodium Chloride Flush Syringe 10 Ml) 10 ml IV BID [facility] Last Admin: 07/04/19 21:34 Dose: 10 ml Documented by: Physical Examination Vital Signs Temp Pulse Resp BP Pulse Ox 98.2 F 71 18 151/84 98 07/03/19 17:24 07/03/19 17:24 07/03/19 17:24 07/03/19 17:24 07/03/19 17:24 General appearance: no acute distress HEENT: Positive: PERRL Neck: Positive: trachea midline Cardiac: Positive: Reg Rate and Rhythm Lungs: Positive: Normal Breath Sounds Neuro: Positive: Grossly Intact Extremities: Absent: edema Results 07/05/19 04:02 07/05/19 04:02 Coagulation 07/05/19 Range/Units 04:02 PT 12.5 (12.2-14.9) Sec. INR 0.96 (0.87-1.13) CBC 07/05/19 Range/Units 04:02 WBC 5.6 (4.5-11.0) K/mm3 RBC 4.04 (3.65-5.03) M/mm3 Hgb 11.4 (10.1-14.3) gm/dl Hct 34.0 (30.3-42.9) % Plt Count 293 (140-440) K/mm3 Lymph # 1.8 (1.2-5.4) K/mm3 [place] # 0.4 (0.0-0.8) K/mm3 Eos # 0.1 (0.0-0.4) K/mm3 Baso # 0.0 (0.0-0.1) K/mm3 Comprehensive Metabolic Panel 07/05/19 Range/Units 04:02 Sodium 142 (137-145) mmol/L Potassium 3.6 (3.6-5.0) mmol/L Chloride 103.3 (98-107) mmol/L Carbon Dioxide 26 (22-30) mmol/L BUN 9 (7-17) mg/dL Creatinine 0.7 (0.7-1.2) mg/dL Glucose 117 H (65-100) mg/dL Calcium 8.8 (8.4-10.2) mg/dL Assessment and Plan - Patient Problems (1) Chest pain Status: Acute Plan to address problem: Chest pain normal ECG negative troponin For stress thallium test. Results are pending. <YUDI MILLER - Last Filed: 07/11/19 08:57> Physical Examination Vital Signs Temp Pulse Resp BP Pulse Ox 98.2 F 71 18 151/84 98 07/03/19 17:24 07/03/19 17:24 07/03/19 17:24 07/03/19 17:24 07/03/19 17:24 Results 07/05/19 04:02 07/05/19 04:02 Assessment and Plan I have seen and evaluated the patient myself and agree with the assessment and plan.
[2019-07-05] MEDS: ASPIRIN 81 MG TAB CHEW PO SCH (09:42)
[2019-07-05] MEDS ORDERED: ASPIRIN 81 MG TAB CHEW ONE (09:42)
[2019-07-05] MEDS ORDERED: ASPIRIN 81 MG TAB CHEW PO SCH (10:00)
[2019-07-05] MEDS ORDERED: HEPARIN/NS 5000 UNIT/500ML 1,000 ML IR ONE (10:53)
[2019-07-05] MEDS ORDERED: SODIUM CHLORIDE 0.9% 500 ML 500 ML ONE (11:14)
[2019-07-05] MEDS: fentaNYL 100 MCG/2 ML INJ ONE ×2 (11:25→11:40)
[2019-07-05] MEDS: LIDOCAINE (2%) 20 MG/1 ML VIAL 20 ML MDV INFILTRATI ONE ×2 (11:25→11:41)
[2019-07-05] MEDS: MIDAZOLAM 2 MG/2 ML INJ ONE ×2 (11:25→11:40)
[2019-07-05] MEDS: HEPARIN 10,000 UNITS/10 ML VIAL ONE ×2 (11:26→11:41)
[2019-07-05] MEDS: VERAPAMIL 5 MG/2 ML INJ ONE ×2 (11:26→11:41)
[2019-07-05] MEDS: NITROGLYCERIN SYRINGE 3 ML ONE ×2 (11:27→11:41)
--- NOTE | 2019-07-05 12:09 | Event Note ---
Date: 07/05/19 Catheterization was completed via the right radial artery, no complications. We found angiographically normal coronary arteries, left circumflex dominant system, normal left ventricular systolic function with ejection fraction 60%. The patient is recommended for risk factor modification, okay for cardiac discharge. If there is chest pain in the future, patient should be evaluated for noncardiac etiologies of chest pain.
--- NOTE | 2019-07-05 12:39 | Cardiac Catherization Report ---
CARDIAC CATHETERIZATION REPORT REASON FOR PROCEDURE: Chest pain. PROCEDURES: 1. Left heart catheterization. 2. Selective left and right coronary angiography. 3. Left ventricular angiography. 4. Sedation time; start 11:40, end 11:50. PROCEDURE IN DETAIL: The patient was prepped and draped in a sterile fashion after informed consent. The right radial cath site was prepped and draped after a negative Rosendo's test. The right radial artery was entered using Seldinger technique. Selective left and right coronary angiography was performed using a #3.5 left and 4 right Andreina catheters. The right Andreina was used for left ventricle angiography. The catheters were removed, sheath removed, and hemostasis achieved using a TR band. The patient was returned to the postprocedure unit in stable condition. There were no complications. FINDINGS: HEMODYNAMICS: Left ventricular end-diastolic pressure was 23, following coronary angiography. Ascending aortic pressure 138/79. There was no significant pressure gradient on pullback across the aortic valve. CORONARY ANGIOGRAPHY: The left main coronary artery was angiographically normal. The left anterior descending artery was moderately ectatic, otherwise this vessel and its diagonal branches were angiographically normal. The circumflex artery was a large dominant vessel, also moderately ectatic, also otherwise angiographically normal. The right coronary artery was a nondominant and similarly angiographically normal. There was normal left ventricular systolic function, ejection fraction 55-60%. CONCLUSION: 1. Angiographically normal coronary arteries. 2. Left circumflex dominant system. 3. Normal left ventricular systolic function, ejection fraction 55-60%. RECOMMENDATIONS: Risk factor modification. If there is further chest pain, recommend evaluate for noncardiac etiologies of chest pain. JOB# [id number] CA/NTS
[2019-07-05] MEDS: DULoxetine 30 MG CAP PO SCH (12:46)
[2019-07-05] MEDS: PANTOPRAZOLE 40 MG TAB PO SCH (12:46)
[2019-07-05] MEDS: ENOXAPARIN 40 MG/0.4 ML INJ SUB-Q SCH (12:46)
[2019-07-05] MEDS: LISINOPRIL 40 MG TAB PO SCH (12:47)
[2019-07-05 12:49] VITALS: BP 124/72
[2019-07-05] MEDS: METOPROLOL TARTRATE 25 MG TAB PO SCH (12:49)
[2019-07-05] MEDS ORDERED: SODIUM CHLORIDE 0.9% 1000 ML 1,000 ML IV SCH (13:00)
--- NOTE | 2019-07-05 15:51 | Discharge Summary ---
Providers - Providers Date of Admission: 07/04/19 00:12 Date of discharge: 07/05/19 Attending physician: VIANEY AMADO 07/04/19 00:09 Consult to Cardiology [CONS] Routine Consulting Provider: SHELDON PULLIAM Reason For Exam: chest pain, hx htn est pt 07/05/19 12:09 Consult to Cardiac Rehabilitation [CONS] Routine Reason For Exam: Cardiac Rehab Evaluation Primary care physician: [employer] Hospitalization Reason for admission: Chest pain Condition: Stable Pertinent studies: CXR Abd CTA CTA chest ECHO Procedures: Stress test coronary angiogram Hospital course: 64 yr old female patient with multiple medical problems was admitted through ER with chest pain. Patient has risk factors,HTN,DM2,managed appropriately,evaluated by cardiology,had stress test which was positive for ischemia,subsequently had heart catheterisation which showed angiographicaly normal coronaries and normal LVEF. Chest pain unspecified.Patients medications optimised. Today patient is comfortable,no new complaints,Vital signs stable,physical exam prior to discharge is unremarkable. Cleared by cardiology for discharge and f/u out patient per schedule. Patient is stable at discharge Disposition: DC-01 TO HOME OR SELFCARE Time spent for discharge: 32 min - Discharge Diagnoses (1) Chest pain, unspecified Status: Acute (2) Hypertension Status: Chronic (3) Hypothyroidism Status: Chronic (4) GERD (gastroesophageal reflux disease) Status: Acute (5) Diabetes 1.5, managed as type 2 Status: Chronic (6) H/O: depression Status: Chronic Core Measure Documentation - Palliative Care Palliative Care/ Comfort Measures: Not Applicable - Core Measures Any of the following diagnoses?: none Exam - Constitutional Vitals: Temp Pulse Resp BP Pulse Ox 98.5 F 79 14 124/72 98 07/05/19 07:28 07/05/19 15:26 07/05/19 07:28 07/05/19 12:49 07/05/19 07:28 General appearance: Present: no acute distress, well-nourished - EENT Eyes: Present: PERRL, EOM intact - Neck Neck: Present: supple, normal ROM - Respiratory Respiratory effort: normal Respiratory: bilateral: diminished, negative: rales, rhonchi, wheezing - Cardiovascular Rhythm: regular Heart Sounds: Present: S1 & S2 - Extremities Extremities: no ischemia, No edema - Abdominal General gastrointestinal: Present: soft, non-tender, non-distended, normal bowel sounds - Integumentary Integumentary: Present: clear, warm - Musculoskeletal Musculoskeletal: strength equal bilaterally - Psychiatric Psychiatric: appropriate mood/affect, cooperative - Neurologic Neurologic: CNII-XII intact, moves all extremities Plan Activity: no restrictions Diet: diabetic Additional Instructions: Do not take metformin next 48 hours. You may restart metformin on 07/07/2019 with evening dose dose Follow up with: PRIMARY MD ADAN [Primary Care Provider] - 3-5 Days TANG BALLARD MD [Staff Physician] - 7 Days Forms: Work/School Release Form Prescriptions: Zolpidem [Ambien] 5 mg PO QHS PRN #7 tablet PRN Reason: Sleep Metoprolol [Lopressor TAB] 12.5 mg PO BID #60 tablet
--- NOTE | 2019-07-06 13:25 | Treadmill Report ---
THALLIUM STRESS TEST. LEFT VENTRICLE: Left ventricular chamber size is within normal spread. Perfusion study demonstrates fairly homogeneous uptake of the tracer in all segments, a small fixed inferoapical defect of uncertain significance. Gated analysis demonstrates normal left ventricular systolic function, ejection fraction greater than 70%. CONCLUSION: Suboptimal perfusion study, with evidence of breast artifact and GI uptake, otherwise no significant reversible defects identified. Clinical correlation is recommended. [facility]# [id number] CA/NTS
== END 2019-07-05 17:47 | disposition home or self-care (01) ==
LOC: ED 16:53 → 4A 07-04 00:12
PROVIDERS: ADMIT Internal Medicine; ATTEND Internal Medicine
DX: R07.89 Other chest pain (principal); I10 Essential (primary) hypertension; E11.9 Type 2 diabetes mellitus without complications; K21.9 Gastro-esophageal reflux disease without esophagitis; E03.9 Hypothyroidism, unspecified; F41.8 Other specified anxiety disorders
CPT/HCPCS: 36415; 71045; 71275; 74175; 78452; 80048; 80061; 82962; 83036; 84484; 85025; 85610; 93005; 93010; 93017; 93306; 93458; A9502; C1894; G0378; J1644; J1650; J2250; J2785; J3010; J7030; J7040; Q9967; 90686; 99285

== ENCOUNTER 2021-01-14 09:15 | Outpatient (CLI) | payer BC ==
--- NOTE | 2021-01-14 14:12 | Mammography Report ---
DEXA BONE DENSITY SCAN INDICATION: OSTEOPOROSIS SCREENING. COMPARISON: None available. LUMBAR SPINE (L1-L4): Bone mineral density (BMD) is 1.169 g/cm2. T-score is 1.1 (standard deviations of Young Adult mean). Z-score is 2.2 (standard deviations of Age Matched mean). LEFT FEMORAL NECK: Bone mineral density (BMD) is 0.826 g/cm2. T-score is -0.2 (standard deviations of Young Adult mean). Z-score is 0.4 (standard deviations of Age Matched mean). IMPRESSION: 1. WHO Classification: Normal bone density. Fracture Risk: Not Increased. Signer Name: Mendoza Nowak MD Signed: 01/14/2021 10:43 AM Workstation Name: [id number]
== END 2021-01-14 09:16 | disposition home or self-care (01) ==
LOC: MAMMO 09:15
PROVIDERS: ATTEND Family Medicine Adult Medicine
DX: Z13.820 Encounter for screening for osteoporosis (principal)
CPT/HCPCS: 77080